=== PATIENT | male | born 2000 | race Caucasian/White ===

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

== ENCOUNTER 2020-07-03 23:30 | Emergency (ER) | payer MEDICAID, SELFPAY ==
--- NOTE | 2020-07-03 23:42 | ECG_ITS ---
APPROVED REPORT Exam: Resting ECG HR:114 bpm ECG Measurements Heart Rate 114 AXES OH 178 P 55 QRSd 98 QRS 48 QT 308 T 25 QTc 424 Conclusion Sinus tachycardia Otherwise normal ECG Electronically signed by : Grabiel Kearns, 07/04/2020 08:52:28
[2020-07-03 23:46] VITALS: BP 159/104; PULSE 127; RESP 22; TEMP 36.9; O2SAT 98; BMI 34.4
[2020-07-04] VITALS (13 sets, daily range): BP systolic 121–160; BP diastolic 68–98; PULSE 78–105; RESP 15–19; TEMP 36.8; O2SAT 94–98
[2020-07-04] LABS: Basophils # 0.1 K/mm3 (0-0.2); Basophils % 0.6 % (0.1-2.0); Eosinophils # 0.3 K/mm3 (0.0-0.4); Eosinophils % 1.6 % (0.1-12.0); Hematocrit 49.5 % (42.0-52.0); Hemoglobin 16.4 g/dL (14.1-18.0); Lymphocytes # 5.5 K/mm3 (0.7-4.5); Lymphocytes % 34.5 % (10-50); Mean Corpuscular HGB Conc 33.1 g/dL (31.8-35.4); Mean Corpuscular Hemoglobin 29.6 pg (27.0-31.2); Mean Corpuscular Volume 89.2 fl (80-94); Mean Platelet Volume 7.5 fl (7.4-10.4); Monocytes # 0.7 K/mm3 (0.1-1.0); Monocytes % 4.6 % (1.7-9.3); Neutrophils # 9.3 K/mm3 (1.8-7.8); Neutrophils % 58.6 % (37.0-80.0); Platelet Count 279 K/mm3 (142-424); Red Blood Count 5.54 M/mm3 (4.60-6.20); Red Cell Distribution Width 13.4 % (11.5-17.5); White Blood Count 15.9 K/mm3 (4.5-13.0)
--- NOTE | 2020-07-04 | ECG_ITS ---
APPROVED REPORT Exam: Resting ECG HR:94 bpm ECG Measurements Heart Rate 94 AXES CA 180 P 49 QRSd 96 QRS 42 QT 348 T 22 QTc 435 Conclusion Normal sinus rhythm Normal ECG Electronically signed by : Grabiel Kearns, 07/05/2020 17:52:09
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
[2020-07-04 00:08] LABS: Alanine Aminotransferase 51 U/L (12-78); Alkaline Phosphatase 64 U/L (38-126); Anion Gap 11.2 mEq/L (5-15); Aspartate Amino Transferase 42 U/L (17-59); Bilirubin,Indirect 0.3 mg/dL (0.0-0.9); Bilirubin,Total 0.3 mg/dl (0.2-1.3); Bilirubin,Unconjugated 0.3 mg/dL (0.0-1.1); Blood Urea Nitrogen 17 mg/dl (9-20); Calcium 10.1 mg/dl (8.4-10.2); Carbon Dioxide 29 mmol/L (22.0-30.0); Chloride 104 mmol/L (98-107); Creatinine Clearance Estimated 227 mL/min (50-200); Estimated Glomerular Filt Rate 123 ml/min (>60); GFR (African American) 149 ML/MIN (>60); Glucose 121 mg/dl (74-100); Potassium 4.2 mmoL/L (3.5-5.1); Sodium 140 mmol/L (136-145); Total Protein,Serum 8.4 g/dl (6.3-8.2)
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
[2020-07-04 00:21] LABS: NT Pro Brain Natriuretic Pep. 23.3 pg/mL (0-125); Troponin I 0.04 ng/ml (0.00-0.034)
[2020-07-04 00:25] LABS: MANUAL DIFFERENTIAL MANUAL DIFFERENTIAL (MANUAL DIFF); T4 (Thyroxine) 7.6 ug/dl (5.53-11.0)
[2020-07-04 00:39] LABS: Thyroid Stimulating Hormone 2.81 uIU/mL (0.465-4.68)
[2020-07-04 01:32] LABS: Eosinophils % 2 % (0-3); Lymphocytes % 37 % (10-50); Monocytes % 3 % (2-9); Neutrophils % 58 % (42-76); Total Cells Counted 100
[2020-07-04 01:33] LABS: Platelet Estimate Normal; RBC Morphology Normal
[2020-07-04 01:53] LABS: Microscopic, Urine URINE MICROSCOPIC (MICROSCOPIC)
[2020-07-04 02:01] LABS: Bilirubin,Urine Negative (Negative); Blood, Urine Negative (Negative); Color,Urine YELLOW (Yellow); Glucose,Urine (UA) Negative (Negative); Ketones,Urine Negative (Negative); Leukocyte Esterase,Urine Negative (Negative); Nitrate,Urine Negative (Negative); Protein,Urine Negative (Negative); Specific Gravity, Urine 1.025 (1.005-1.030); Urobilinogen,Urine 0.2 EU/dl (0.2)
[2020-07-04 02:14] LABS: Barbiturates Screen,Urine Negative ng/ml (<200); Benzodiazepines Screen,Urine Negative ng/ml (<200)
[2020-07-04 02:15] LABS: Amphetamine/Metha Screen,Urine Negative ng/ml (<1000)
[2020-07-04 02:16] LABS: Cannabinoid Screen,Urine Negative ng/ml (<50); Cocaine Screen,Urine Negative ng/ml (<300)
[2020-07-04 02:17] LABS: Methadone Screen,Urine Negative ng/ml (<300)
[2020-07-04 02:18] LABS: Opiate Screen,Urine Negative ng/ml (<300); Phencyclidine Screen,Urine Negative ng/ml (<25)
[2020-07-04 02:53] LABS: Appearance,Urine Slightly Cloudy (Clear)
[2020-07-04 03:03] LABS: Amorphous Sediment,Urine 1+ /lpf; Bacteria,Urine Trace /lpf; WBC,Urine Occasional #/hpf (0-3)
[2020-07-04 03:21] LABS: Troponin I 0.06 ng/ml (0.00-0.034)
[2020-07-04 04:24] LABS: Procalcitonin 0.059 ng/mL (0.0-2.0)
[2020-07-04 04:25] LABS: Erythrocyte Sedimentation Rate 7 mm/hr (0-15)
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
[2020-07-04 06:14] LABS: Troponin I < 0.01 ng/ml (0.00-0.034)
== END 2020-07-04 06:25 | disposition home or self-care (01) ==
PROVIDERS: Emergency Provider Emergency Medicine
DX: R55 Syncope and collapse (principal); R03.0 Elevated blood-pressure reading, without diagnosis of hypertension; F17.210 Nicotine dependence, cigarettes, uncomplicated; Z20.822 Contact with and (suspected) exposure to COVID-19
CPT/HCPCS: 70450; 71046; 72125; 80048; 80076; 80305; 81001; 83880; 84145; 84436; 84443; 84484; 85007; 85025; 85651; 86140; 93005; 99284; U0003

== ENCOUNTER 2021-07-13 04:13 | Emergency (ER) | payer MEDICAID, SELFPAY ==
[2021-07-13 04:09] VITALS: BP 156/96; PULSE 97; RESP 20; TEMP 36.8; O2SAT 98; BMI 32.5
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
[2021-07-13 05:16] LABS: Microscopic, Urine URINE MICROSCOPIC (MICROSCOPIC)
[2021-07-13 05:18] LABS: Basophils # 0.1 K/mm3 (0-0.2); Basophils % 0.6 % (0.1-2.0); Eosinophils # 0.2 K/mm3 (0.0-0.4); Eosinophils % 1.6 % (0.1-12.0); Hematocrit 47.6 % (42.0-52.0); Hemoglobin 15.8 g/dL (14.1-18.0); Lymphocytes # 2.6 K/mm3 (0.7-4.5); Lymphocytes % 22.5 % (10-50); Mean Corpuscular HGB Conc 33.2 g/dL (31.8-35.4); Mean Corpuscular Volume 90.4 fl (80-94); Mean Platelet Volume 8.2 fl (7.4-10.4); Monocytes # 0.6 K/mm3 (0.1-1.0); Monocytes % 4.9 % (1.7-9.3); Neutrophils # 8.1 K/mm3 (1.8-7.8); Neutrophils % 70.4 % (37.0-80.0); Platelet Count 257 K/mm3 (142-424); Red Blood Count 5.26 M/mm3 (4.60-6.20); Red Cell Distribution Width 13.6 % (11.5-17.5); White Blood Count 11.5 K/mm3 (4.8-10.8)
[2021-07-13 05:26] LABS: Alanine Aminotransferase 27 U/L (12-78); Albumin Level 4.6 g/dl (3.5-5.0); Albumin/Globulin Ratio 1.6 (1.1-1.8); Alkaline Phosphatase 63 U/L (38-126); Anion Gap 14.6 mEq/L (5-15); Aspartate Amino Transferase 36 U/L (17-59); Blood Urea Nitrogen 10 mg/dl (9-20); Calcium 9.3 mg/dl (8.4-10.2); Carbon Dioxide 24 mmol/L (22.0-30.0); Chloride 106 mmol/L (98-107); Creatinine Clearance Estimated 206 mL/min (50-200); Estimated Glomerular Filt Rate 122 ml/min (>60); GFR (African American) 148 ML/MIN (>60); Globulin 2.9 g/dL (1.3-3.2); Glucose 108 mg/dl (74-100); Potassium 3.6 mmoL/L (3.5-5.1); Sodium 141 mmol/L (136-145); Total Protein,Serum 7.5 g/dl (6.3-8.2)
[2021-07-13 05:28] LABS: Appearance,Urine CLEAR (Clear); Bilirubin,Urine Negative (Negative); Blood, Urine Negative (Negative); Color,Urine YELLOW (Yellow); Glucose,Urine (UA) Negative (Negative); Ketones,Urine TRACE (Negative); Leukocyte Esterase,Urine Negative (Negative); Nitrate,Urine Negative (Negative); Protein,Urine 1+ (Negative); Specific Gravity, Urine >= 1.030 (1.005-1.030)
[2021-07-13 05:31] LABS: C-Reactive Protein 6.5 mg/L (0-4)
[2021-07-13 05:34] LABS: Benzodiazepines Screen,Urine Negative ng/ml (<200)
[2021-07-13 05:35] LABS: Barbiturates Screen,Urine Negative ng/ml (<200)
[2021-07-13 05:36] LABS: Cannabinoid Screen,Urine Positive ng/ml (<50); Cocaine Screen,Urine Negative ng/ml (<300)
[2021-07-13 05:37] LABS: Methadone Screen,Urine Negative ng/ml (<300); Opiate Screen,Urine Negative ng/ml (<300)
[2021-07-13 05:38] LABS: Phencyclidine Screen,Urine Negative ng/ml (<25)
[2021-07-13 05:42] LABS: Amorphous Sediment,Urine Trace /lpf; Mucus,Urine 4+ /lpf
[2021-07-13 05:46] LABS: Procalcitonin 0.035 ng/mL (0.0-2.0)
[2021-07-13 05:47] LABS: Erythrocyte Sedimentation Rate 12 mm/hr (0-15)
[2021-07-13 06:03] LABS: Amphetamine/Metha Screen,Urine Positive ng/ml (<1000)
[2021-07-13 06:54] VITALS: BP 150/90; PULSE 80; RESP 18; TEMP 36.7; O2SAT 99
[2021-07-13 06:56] VITALS: BP 147/75; PULSE 81; RESP 16; TEMP 36.8; O2SAT 98
== END 2021-07-13 06:57 | disposition home or self-care (01) ==
PROVIDERS: Emergency Provider Emergency Medicine; PCP Family Medicine
DX: M54.6 Pain in thoracic spine (principal); M25.512 Pain in left shoulder; M25.511 Pain in right shoulder; R07.9 Chest pain, unspecified; S00.12XA Contusion of left eyelid and periocular area, initial encounter; F19.251 Other psychoactive substance dependence with psychoactive substance-induced psychotic disorder with hallucinations; F17.200 Nicotine dependence, unspecified, uncomplicated; Y04.2XXA Assault by strike against or bumped into by another person, initial encounter; Z82.49 Family history of ischemic heart disease and other diseases of the circulatory system
CPT/HCPCS: 70450; 71046; 71111; 72072; 72125; 72170; 80053; 80305; 81001; 84145; 85025; 85651; 86140; 99285